=== PATIENT | female | born 1970 | race Caucasian/White ===

== ENCOUNTER 2017-08-12 23:30 | Emergency (ER) | payer OTHER ==
[~2017-08-12] VITALS: Ht 177.8 cm; Wt 150.5 kg
[~2017-08-12 23:30] MED LIST: ANTIVERT25 MG PO; AUGMENTIN875 MG PO; LORCET 5-325 M1 EACH PO; MOTRIN600 MG PO; NORCO 5/3251 TABLET PO; PERCOCET 5/31 TABLET PO; PROMETHAZINE HC25 M1 PO; SILVADENE20 GM TP; ZOFRAN4 MG PO
[2017-08-13 00:33] LABS: BASOPHIL (%) 0.3 % (0-1); EOSINOPHIL (%) 1.8 % (0-5); EOSINOPHIL COUNT 0.2 K/uL (0-0.3); HEMATOCRIT 33.8 % (36.0-46.0); IMMATURE GRANULOCYTE (%) 0.5 % (0.0-0.7); LYMPHOCYTE (%) 23.2 % (15-42); LYMPHOCYTE COUNT 2.2 K/uL (1.0-2.8); MCH 27.4 PG (29.0-34.0); MCHC 32.5 G/DL (30.0-36.0); MCV 84.3 FL (83-99); MONOCYTE (%) 6.5 % (3-12); MONOCYTE COUNT 0.6 K/uL (0-0.8); NEUTROPHIL (%) 67.7 % (45-76); NEUTROPHIL COUNT 6.3 K/uL (1.8-6.4); PLATELET COUNT 253 K/uL (156-360); RBC DIS.WIDTH-CV 14.6 % (11.8-14.6); RBC DIS.WIDTH-SD 44.5 % (39-53); RED BLOOD COUNT 4.01 M/uL (3.80-5.20); WHITE BLOOD COUNT 9.4 K/uL (4.1-10.2)
[2017-08-13 00:42] LABS: CHLORIDE 103 mEq/L (99-109); POTASSIUM 3.6 mEq/L (3.7-5.4); SODIUM 138 mEq/L (136-147)
[2017-08-13 00:44] LABS: GLUCOSE 137 mg/dL (70-99)
[2017-08-13 00:48] LABS: CREATININE 0.8 mg/dL (0.6-1.3); GFR ESTIMATE (CALCULATED) > 59 mL/min/
[2017-08-13 00:49] LABS: UREA NITROGEN (BUN) 13 mg/dL (9-23)
[2017-08-13 00:55] LABS: TROP-I INTERPRETATION NEGATIVE; TROPONIN-I 0.01 ng/mL (0.0-0.30)
[2017-08-13 03:06] LABS: TROP-I INTERPRETATION NEGATIVE; TROPONIN-I 0.02 ng/mL (0.0-0.30)
[2017-08-13] MEDS ORDERED: TYLENOL WITH C1 EACH PO (04:05)
[2017-08-13 04:24] VITALS: BP 145/69
== END 2017-08-13 04:25 | disposition home or self-care (01) ==
LOC: EME 23:30
PROVIDERS: Emergency Medicine
DX: J20.9 Acute bronchitis, unspecified (principal); R07.89 Other chest pain; K21.9 Gastro-esophageal reflux disease without esophagitis; I10 Essential (primary) hypertension; F32.9 Major depressive disorder, single episode, unspecified; F17.200 Nicotine dependence, unspecified, uncomplicated
CPT/HCPCS: 71046; 80048; 84484; 85025; 85379; 93005; 99281; 99285

== ENCOUNTER 2018-01-09 09:04 | Emergency (ER) | payer OTHER ==
[~2018-01-09] VITALS: Ht 172.7 cm; Wt 148.5 kg
[~2018-01-09 09:04] MED LIST changes: +TYLENOL WITH C1 EACH PO
[2018-01-09 09:46] LABS: HEMATOCRIT 36.8 % (36.0-46.0); HEMOGLOBIN 12.2 G/DL (11.9-15.5); MCH 28.3 PG (29.0-34.0); MCHC 33.2 G/DL (30.0-36.0); MCV 85.4 FL (83-99); PLATELET COUNT 313 K/uL (156-360); RBC DIS.WIDTH-CV 14.7 % (11.8-14.6); RBC DIS.WIDTH-SD 44.8 % (39-53); RED BLOOD COUNT 4.31 M/uL (3.80-5.20); WHITE BLOOD COUNT 8.8 K/uL (4.1-10.2)
[2018-01-09 10:00] LABS: CHLORIDE 102 mEq/L (99-109); POTASSIUM 3.7 mEq/L (3.7-5.4); SODIUM 139 mEq/L (136-147)
[2018-01-09 10:02] LABS: GLUCOSE 133 mg/dL (70-99)
[2018-01-09 10:04] LABS: TOTAL BILIRUBIN 0.6 mg/dL (0.0-1.0)
[2018-01-09 10:05] LABS: ALKALINE PHOSPHATASE 90 IU/L (3-129)
[2018-01-09 10:06] LABS: CREATININE 0.8 mg/dL (0.6-1.3); GFR ESTIMATE (CALCULATED) > 59 mL/min/
[2018-01-09 10:07] LABS: AST (GOT) 18 IU/L (2-34); UREA NITROGEN (BUN) 10 mg/dL (9-23)
[2018-01-09 10:09] LABS: ALT (GPT) 17 IU/L (3-49)
[2018-01-09 10:15] LABS: QUANTITATIVE HCG < 4.0 MIU/ML
[2018-01-09 10:18] LABS: APPEARANCE SL.HAZY ((CLEAR)); BILIRUBIN NEGATIVE; BLOOD LARGE; COLOR YELLOW ((YELLOW)); GLUCOSE (STRIP) NEGATIVE; KETONES NEGATIVE; LEUKOCYTES NEGATIVE; NITRITE NEGATIVE; PROTEIN (STRIP) 30; SPECIFIC GRAVITY 1.024 (1.000-1.030); UROBILINOGEN 0.2 MG/DL (0.2-1.0)
[2018-01-09 10:44] LABS: EPITHELIAL CELLS RARE /HPF; RED BLOOD CELLS TNTC /HPF (0-5); WHITE BLOOD CELLS RARE /HPF (0-5)
[2018-01-09 10:45] LABS: BACTERIA NONE SEEN /HPF; MUCUS NONE SEEN /LPF; UCUL ADDED? YES
[2018-01-09] MEDS ORDERED: TYLENOL WITH C1 EACH PO (11:00)
[2018-01-09] MEDS ORDERED: PROVERA,CYCRIN10 MG PO (11:00)
[2018-01-09 11:56] VITALS: BP 197/119
== END 2018-01-09 11:58 | disposition home or self-care (01) ==
LOC: EME 09:04
DX: N93.8 Other specified abnormal uterine and vaginal bleeding (principal); R10.30 Lower abdominal pain, unspecified; Z90.49 Acquired absence of other specified parts of digestive tract; F17.200 Nicotine dependence, unspecified, uncomplicated
CPT/HCPCS: 80053; 81003; 84702; 85027; 87086; 99281; 99283